=== PATIENT | male | born 1990 | race Caucasian/White ===

== ENCOUNTER 2017-09-10 08:20 | Observation (INO) | payer OTHER, MEDICAID ==
[2017-09-10] MEDS: NS 1,000 ML IV (08:45)
[2017-09-10 08:54] LABS: HEMATOCRIT 49.8 % (42.0-52.0); HEMOGLOBIN 16.8 g/dl (14.0-18.0); MEAN CORPUSCULAR HEMOGLOBIN 30.2 pg (27.0-33.0); MEAN CORPUSCULAR HGB CONC 33.7 g/dl (32.0-36.5); MEAN CORPUSCULAR VOLUME 89.6 fl (80.0-96.0); PLATELET COUNT, AUTOMATED 284 10^3/uL (150-450); RED BLOOD COUNT 5.56 10^6/uL (4.30-6.10); RED CELL DISTRIBUTION WIDTH 13.4 % (11.5-14.5); WHITE BLOOD COUNT 8.5 10^3/uL (4.0-10.0)
[2017-09-10] MEDS: CHARCOAL ACTIVATED LIQUID 25 GM/120 ML BTL PO (09:30)
[2017-09-10 10:08] LABS: ACETAMINOPHEN LEVEL < 2.0 UG/ML (10.0-30.0); ALBUMIN 4.1 GM/DL (3.2-5.2); ALBUMIN/GLOBULIN RATIO 1.14 (1.00-1.93); ALKALINE PHOSPHATASE 66 U/L (45-117); ALT/SGPT 54 U/L (12-78); ANION GAP 9 MEQ/L (8-16); AST/SGOT 19 U/L (7-37); BILIRUBIN,DIRECT 0.1 MG/DL (0.0-0.2); BILIRUBIN,TOTAL 0.5 MG/DL (0.2-1.0); BLOOD UREA NITROGEN 10 MG/DL (7-18); CARBON DIOXIDE LEVEL 28 MEQ/L (21-32); CHLORIDE LEVEL 106 MEQ/L (98-107); CREATININE FOR GFR 0.84 MG/DL (0.70-1.30); ETHYL ALCOHOL (ETHANOL) 0.003 % (0.000-0.010); GLOMERULAR FILTRATION RATE > 60.0 (>60); GLUCOSE, FASTING 81 MG/DL (70-100); POTASSIUM SERUM 3.8 MEQ/L (3.5-5.1); SALICYLATE LEVEL < 1.7 MG/DL (5.0-30.0); SODIUM LEVEL 143 MEQ/L (136-145); TOTAL PROTEIN 7.7 GM/DL (6.4-8.2)
[2017-09-10 13:29] LABS: AMPHETAMINES LEVEL URINE NEGATIVE (NEGATIVE); BARBITURATES URINE NEGATIVE (NEGATIVE); BENZODIAZEPINES URINE POSITIVE (NEGATIVE); CANNABINOIDS URINE NEGATIVE (NEGATIVE); COCAINE METABOLITE URINE NEGATIVE (NEGATIVE); METHADONE URINE NEGATIVE (NEGATIVE); OPIATES URINE NEGATIVE (NEGATIVE); PHENCYCLIDINE URINE NEGATIVE (NEGATIVE)
[2017-09-10] MEDS: LR 1,000 ML IV (16:30)
[2017-09-10] MEDS: PANTOPRAZOLE 40MG INJ (PROTONIX) (C9113) IV (21:09)
[2017-09-11] MEDS: ACETAMINOPHEN TAB 650MG DOSE (2X325MG) PO (04:46)
[2017-09-11] MEDS: LR 1,000 ML IV ×2 (09:23→20:33)
[2017-09-11] MEDS: PANTOPRAZOLE 40MG INJ (PROTONIX) (C9113) IV (20:33)
== END 2017-09-12 18:50 ==
LOC: M ED 08:20 → M ED INP 15:50 → M PCU 21:01
DX: T42.4X2A Poisoning by benzodiazepines, intentional self-harm, initial encounter (principal); T43.222A Poisoning by selective serotonin reuptake inhibitors, intentional self-harm, initial encounter; R94.31 Abnormal electrocardiogram [ECG] [EKG]; Y92.89 Other specified places as the place of occurrence of the external cause; K21.9 Gastro-esophageal reflux disease without esophagitis; F33.2 Major depressive disorder, recurrent severe without psychotic features; T43.215A Adverse effect of selective serotonin and norepinephrine reuptake inhibitors, initial encounter; E66.9 Obesity, unspecified; F41.9 Anxiety disorder, unspecified; K76.0 Fatty (change of) liver, not elsewhere classified; Z81.8 Family history of other mental and behavioral disorders; Z79.899 Other long term (current) drug therapy; Z88.2 Allergy status to sulfonamides
CPT/HCPCS: C9113

== ENCOUNTER 2017-09-12 18:55 | Inpatient (IN) | payer OTHER ==
[~2017-09-12 18:55] MED LIST: ACETAMINOPHEN TAB 650MG DOSE (2X325MG) PO; MAALOX 30 ML SUSP *UDC PO; MOM 30ML SUSPENSION UDC PO
[2017-09-12] MEDS: traZODone 50 MG TAB PO (22:14)
[2017-09-13] MEDS: SERTRALINE HCL 25 MG TABLET PO (08:36)
[2017-09-13] MEDS: busPIRone 5 MG TAB PO ×2 (10:06→20:53)
[2017-09-13] MEDS: hydrOXYzine 25 MG TAB PO (20:53)
[2017-09-13] MEDS: traZODone 50 MG TAB PO (23:43)
[2017-09-14] MEDS: SERTRALINE HCL 25 MG TABLET PO (08:13)
[2017-09-14] MEDS: busPIRone 5 MG TAB PO ×2 (08:13→21:03)
[2017-09-14] MEDS: hydrOXYzine 25 MG TAB PO (15:08)
[2017-09-14] MEDS: traZODone 50 MG TAB PO (21:54)
[2017-09-15] MEDS: SERTRALINE HCL 25 MG TABLET PO (08:14)
[2017-09-15] MEDS: busPIRone 5 MG TAB PO (08:14)
== END 2017-09-15 11:30 | disposition home or self-care (01) | DRG 756 ==
LOC: M PSY 18:55
DX: F41.9 Anxiety disorder, unspecified (principal); F33.2 Major depressive disorder, recurrent severe without psychotic features; R45.851 Suicidal ideations; Z91.5 Personal history of self-harm; Z79.899 Other long term (current) drug therapy; Z88.2 Allergy status to sulfonamides; K21.9 Gastro-esophageal reflux disease without esophagitis; E66.9 Obesity, unspecified

== ENCOUNTER 2018-05-07 17:31 | Inpatient (IN) | payer OTHER ==
[2018-05-07 14:41] LABS: VENOUS BASE EXCESS 0.8 (-2.0-2.0); VENOUS HCO3 27.4 MEQ/L (23.0-27.0); VENOUS O2 SATURATION 75.2 % (60.0-80.0); VENOUS PARTIAL PRESSURE CO2 50.8 mmHg (38.0-50.0); VENOUS PARTIAL PRESSURE O2 40.5 mmHg (30.0-50.0); VENOUS STANDARD HCO3 24.5 MEQ/L
[2018-05-07 14:52] LABS: BASO # 0.1 10^3/uL (0.0-0.2); BASO % 0.7 % (0.0-1.0); EOS # 0.1 10^3/uL (0.0-0.50); EOS % 1.2 % (0.0-3.0); HEMATOCRIT 47.6 % (42.0-52.0); HEMOGLOBIN 16.3 g/dl (13.5-17.5); LYMPH # 2.1 10^3/uL (1.5-6.5); LYMPH % 27.7 % (24.0-44.0); MEAN CORPUSCULAR HGB CONC 34.2 g/dl (32.0-36.5); MEAN CORPUSCULAR VOLUME 90.7 fl (80.0-96.0); MONO # 0.7 10^3/uL (0.0-0.8); MONO % 9.1 % (0.0-5.0); NEUTROPHILS # 4.5 10^3/uL (1.8-7.7); NEUTROPHILS % 61.3 % (36.0-66.0); PLATELET COUNT, AUTOMATED 323 10^3/uL (150-450); RED BLOOD COUNT 5.25 10^6/uL (4.30-6.10); RED CELL DISTRIBUTION WIDTH 13.3 % (11.5-14.5); WHITE BLOOD COUNT 7.4 10^3/uL (4.0-10.0)
[2018-05-07] MEDS: NS 1,000 ML IV (15:02)
[2018-05-07 15:15] LABS: ALBUMIN 4.3 GM/DL (3.2-5.2); ALBUMIN/GLOBULIN RATIO 1.19 (1.00-1.93); ALKALINE PHOSPHATASE 74 U/L (45-117); ALT/SGPT 77 U/L (12-78); ANION GAP 8 MEQ/L (8-16); AST/SGOT 31 U/L (7-37); BILIRUBIN,DIRECT 0.2 MG/DL (0.0-0.2); BILIRUBIN,TOTAL 0.6 MG/DL (0.2-1.0); BLOOD UREA NITROGEN 11 MG/DL (7-18); CALCIUM LEVEL 9.5 MG/DL (8.5-10.1); CARBON DIOXIDE LEVEL 29 MEQ/L (21-32); CHLORIDE LEVEL 105 MEQ/L (98-107); CPK CREATINE PHOSPHOKINASE 69 U/L (39-308); CREATININE FOR GFR 1.03 MG/DL (0.70-1.30); ETHYL ALCOHOL (ETHANOL) < 0.003 % (0.000-0.010); GLOMERULAR FILTRATION RATE > 60.0 (>60); GLUCOSE, FASTING 94 MG/DL (70-100); POTASSIUM SERUM 4.3 MEQ/L (3.5-5.1); SALICYLATE LEVEL < 1.7 MG/DL (5.0-30.0); SODIUM LEVEL 142 MEQ/L (136-145); TOTAL PROTEIN 7.9 GM/DL (6.4-8.2)
[2018-05-07 15:16] LABS: ACETAMINOPHEN LEVEL < 2.0 UG/ML (10.0-30.0)
[2018-05-07 15:19] LABS: BEDSIDE GLUCOSE 92 MG/DL (70-105)
[2018-05-07 20:07] LABS: AMPHETAMINES LEVEL URINE NEGATIVE (NEGATIVE); BARBITURATES URINE NEGATIVE (NEGATIVE); BENZODIAZEPINES URINE NEGATIVE (NEGATIVE); CANNABINOIDS URINE NEGATIVE (NEGATIVE); COCAINE METABOLITE URINE NEGATIVE (NEGATIVE); METHADONE URINE NEGATIVE (NEGATIVE); OPIATES URINE NEGATIVE (NEGATIVE); PHENCYCLIDINE URINE NEGATIVE (NEGATIVE)
[2018-05-07] MEDS ORDERED: ACETAMINOPHEN TAB 650MG DOSE (2X325MG) PO (21:30)
[2018-05-07] MEDS ORDERED: MOM 30ML SUSPENSION UDC PO (21:30)
[2018-05-07] MEDS: traZODone 50 MG TAB PO (23:27)
[2018-05-08] MEDS: busPIRone 10 MG TAB PO ×2 (15:51→21:00)
[2018-05-08] MEDS: MAALOX 30 ML SUSP *UDC PO (21:09)
[2018-05-08] MEDS: traZODone 100 MG TAB PO (23:01)
[2018-05-09] MEDS: busPIRone 10 MG TAB PO ×3 (08:43→20:55)
[2018-05-09] MEDS: MAALOX 30 ML SUSP *UDC PO ×2 (10:16→22:28)
[2018-05-09] MEDS: PROPRANOLOL 10 MG TAB PO (20:55)
[2018-05-09] MEDS: traZODone 100 MG TAB PO (22:29)
[2018-05-10] MEDS: busPIRone 10 MG TAB PO ×3 (08:49→20:43)
[2018-05-10] MEDS: MAALOX 30 ML SUSP *UDC PO (11:54)
[2018-05-10] MEDS: FETZIMA 40 MG PO (16:39)
[2018-05-10] MEDS: FETZIMA 20 MG PO (16:39)
[2018-05-10] MEDS: traZODone 100 MG TAB PO (22:27)
[2018-05-11] MEDS: FETZIMA 40 MG PO (08:33)
[2018-05-11] MEDS: busPIRone 10 MG TAB PO (08:33)
[2018-05-11] MEDS: FETZIMA 20 MG PO (08:33)
== END 2018-05-11 13:30 | disposition home or self-care (01) | DRG 755 ==
LOC: M ED 17:31 → M ED INP 21:27 → M PSY 22:18
DX: F40.01 Agoraphobia with panic disorder (principal); F33.2 Major depressive disorder, recurrent severe without psychotic features; Z68.43 Body mass index [BMI] 50.0-59.9, adult; F41.1 Generalized anxiety disorder; Z79.899 Other long term (current) drug therapy; Z88.2 Allergy status to sulfonamides; E66.9 Obesity, unspecified; G47.00 Insomnia, unspecified

== ENCOUNTER → 2018-09-03 | Outpatient (CLI) | payer OTHER ==
[~2018-09-03] MED LIST changes: -ACETAMINOPHEN TAB 650MG DOSE (2X325MG) PO; +BUSP10TA PO; +BUSP1TAB; +BUSP1TAB PO; +BUSP5TA PO; +CLON0.5T8; +CLON0.5T8 PO; +CLON1TAB8 PO; +FETZ1CAP2; +FETZ1CAP2 PO; +FETZ1CAP3; +FETZ1CAP3 PO; -MAALOX 30 ML SUSP *UDC PO; -MOM 30ML SUSPENSION UDC PO; +PROP10TA56 PO; +SERT-155 PO; +TRAZ-160 PO; +TRAZ10TA PO; +VENL150C43 PO; +VIST25CA PO; +ZOLO25TA PO
[2018-09-03 10:37] LABS: HEMATOCRIT 44.8 % (42.0-52.0); HEMOGLOBIN 15.2 g/dl (13.5-17.5); MEAN CORPUSCULAR HEMOGLOBIN 29.7 pg (27.0-33.0); MEAN CORPUSCULAR HGB CONC 33.9 g/dl (32.0-36.5); MEAN CORPUSCULAR VOLUME 87.7 fl (80.0-96.0); PLATELET COUNT, AUTOMATED 286 10^3/uL (150-450); RED BLOOD COUNT 5.11 10^6/uL (4.30-6.10); WHITE BLOOD COUNT 6.6 10^3/uL (4.0-10.0)
--- NOTE | 2018-09-03 11:00 | REP ---
CHEST, TWO VIEWS: There is no evidence of acute infiltrate. No pleural effusion is seen. The heart is normal in size. The mediastinal silhouette is unremarkable. The visualized osseous structures are intact. IMPRESSION: No acute pulmonary disease. Electronically Signed by Henry Worley MD 09/03/2018 11:02 A
[2018-09-03 11:07] LABS: ALBUMIN 3.7 GM/DL (3.2-5.2); ALT/SGPT 51 U/L (12-78); BILIRUBIN,TOTAL 0.7 MG/DL (0.2-1.0); BLOOD UREA NITROGEN 9 MG/DL (7-18); CALCIUM LEVEL 8.8 MG/DL (8.5-10.1); CARBON DIOXIDE LEVEL 28 MEQ/L (21-32); CHLORIDE LEVEL 106 MEQ/L (98-107); CHOLESTEROL LEVEL 145 MG/DL (<200); CHOLESTEROL RISK RATIO 4.833 (<5); CREATININE FOR GFR 0.85 MG/DL (0.70-1.30); GLOMERULAR FILTRATION RATE > 60.0 (>60); GLUCOSE, FASTING 95 MG/DL (70-100); HDL CHOLESTEROL 30 MG/DL (>40); LDL CHOLESTEROL 85 MG/DL (<100); NON-HDL-C 115 MG/DL; POTASSIUM SERUM 4.3 MEQ/L (3.5-5.1); SODIUM LEVEL 139 MEQ/L (136-145); TRIGLYCERIDES LEVEL 148 MG/DL (<150)
[2018-09-03 11:22] LABS: TOTAL 25(OH) VITAMIN D 10.3 NG/ML (30.0-100.0)
[2018-09-03 11:32] LABS: HEMOGLOBIN A1c 5.6 %
--- NOTE | 2018-09-04 00:41 | ECGEPIP ---
Stationary ECG Study [facility] Test Date: 2018-09-03 Pat Name: PACHECO MARTE Department: Room: - Gender: M Senior Sales Operations Manager: MELO : 1990 Requested By: Geovanny Soria Order Number: [id number] Reading MD: Delon Bermudez Measurements Intervals [place] Rate: 73 P: 36 [place]: 144 QRS: 73 QRSD: 103 T: 32 QT: 364 QTc: 404 Interpretive Statements SINUS RHYTHM NONSPECIFIC ST ELEVATION, PROBABLY RELATED TO EARLY REPOLARIZATION COMPARED TO THE MOST RECENT 2 TRACINGS IN THE SYSTEM, NO SIGNIFICANT CHANGES Electronically Signed On 09-04-2018 0:41:20 EST by Delon Bermudez
== END ==
LOC: M LAB 09:55
PROVIDERS: ATTEND Family Medicine
DX: I10 Essential (primary) hypertension (principal)

== ENCOUNTER 2018-11-23 12:52 | Emergency (ER) | payer OTHER ==
[~2018-11-23] VITALS: Ht 170.2 cm; Wt 98.2 kg
[2018-11-23] MEDS ORDERED: TRIA37.53 (13:07)
[2018-11-23] MEDS ORDERED: FLUO40CA (13:07)
[2018-11-23] MEDS ORDERED: ALPR1TAB3 (13:07)
[2018-11-23] MEDS ORDERED: VITA500045 (13:07)
[2018-11-23] MEDS ORDERED: OMEP-218 (13:07)
[2018-11-23] MEDS ORDERED: LEVO200T4 (13:07)
--- NOTE | 2018-11-23 14:21 | REP ---
Chest two views HISTORY: Chest pain Comparison: 09/03/2018 The lungs are clear. The heart is normal in size. The pulmonary vasculature is normal in appearance. The bony structure is intact. IMPRESSION: No acute disease. Electronically Signed by Adonis Velasquez MD 11/23/2018 02:12 P
[2018-11-23 14:43] LABS: BASO % 0.3 % (0.0-1.0); EOS # 0.1 10^3/uL (0.0-0.50); EOS % 1.1 % (0.0-3.0); HEMATOCRIT 46.5 % (42.0-52.0); HEMOGLOBIN 15.6 g/dl (13.5-17.5); LYMPH # 1.8 10^3/uL (1.5-6.5); LYMPH % 20.7 % (24.0-44.0); MEAN CORPUSCULAR HEMOGLOBIN 29.8 pg (27.0-33.0); MEAN CORPUSCULAR HGB CONC 33.5 g/dl (32.0-36.5); MEAN CORPUSCULAR VOLUME 88.7 fl (80.0-96.0); MONO # 0.7 10^3/uL (0.0-0.8); MONO % 7.9 % (0.0-5.0); NEUTROPHILS # 6.1 10^3/uL (1.8-7.7); NEUTROPHILS % 69.8 % (36.0-66.0); PLATELET COUNT, AUTOMATED 294 10^3/uL (150-450); RED BLOOD COUNT 5.24 10^6/uL (4.30-6.10); WHITE BLOOD COUNT 8.8 10^3/uL (4.0-10.0)
[2018-11-23 15:19] LABS: ALBUMIN 3.9 GM/DL (3.2-5.2); ALT/SGPT 152 U/L (12-78); BILIRUBIN,DIRECT 0.2 MG/DL (0.0-0.2); BILIRUBIN,TOTAL 0.7 MG/DL (0.2-1.0); BLOOD UREA NITROGEN 17 MG/DL (7-18); CARBON DIOXIDE LEVEL 28 MEQ/L (21-32); CHLORIDE LEVEL 106 MEQ/L (98-107); CPK CREATINE PHOSPHOKINASE 93 U/L (39-308); CREATININE FOR GFR 0.76 MG/DL (0.70-1.30); GLOMERULAR FILTRATION RATE > 60.0 (>60); GLUCOSE, FASTING 83 MG/DL (70-100); MB/CK RELATIVE INDEX 1.08 (< OR =4); SODIUM LEVEL 140 MEQ/L (136-145); TOTAL PROTEIN 7.2 GM/DL (6.4-8.2); TROPONIN I < 0.02 NG/ML (< 0.10)
[2018-11-23] MEDS ORDERED: ISOVUE-370 76% 100ML VIAL (Q9967) As Ordered ONE (16:37)
[2018-11-23 17:08] VITALS: BP 126/61
--- NOTE | 2018-11-23 19:13 | REP ---
CT ANGIOGRAM CHEST: TECHNIQUE: Axial contrast enhanced images from the thoracic inlet to the upper abdomen using 100 mL Isovue 370 intravenous contrast material with multiplanar reformations. There is no CT evidence of pulmonary embolism. There is no thoracic aortic aneurysm or dissection. Heart is normal in size. There is no mediastinal, hilar, or chest wall lymphadenopathy. There is no pleural or pericardial effusion. There is a small hiatal hernia. No infiltrate is seen in either lung and there is no pneumothorax. IMPRESSION: No CT evidence of pulmonary embolism. Small hiatal hernia. Electronically Signed by Henry Worley MD 11/25/2018 09:53 A
--- NOTE | 2018-11-24 01:37 | ECGEPIP ---
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 Order Number: [id number] Reading MD: Yony Oliveira Measurements Intervals [place] Rate: 75 P: 25 [place]: 138 QRS: 73 QRSD: 84 T: 17 QT: 377 QTc: 423 Interpretive Statements SINUS RHYTHM BENIGN EARLY REPOLARIZATION SIMILAR TO 09/03/18 Electronically Signed On 11-24-2018 1:36:54 EDT by Yony Oliveira
== END 2018-11-23 17:55 | disposition home or self-care (01) ==
LOC: M ED 12:52
DX: R07.89 Other chest pain (principal); K44.9 Diaphragmatic hernia without obstruction or gangrene; R10.9 Unspecified abdominal pain; Z88.2 Allergy status to sulfonamides; I10 Essential (primary) hypertension; K21.9 Gastro-esophageal reflux disease without esophagitis; Z87.440 Personal history of urinary (tract) infections; K76.0 Fatty (change of) liver, not elsewhere classified; F32.9 Major depressive disorder, single episode, unspecified; F41.9 Anxiety disorder, unspecified; Z91.5 Personal history of self-harm; F40.00 Agoraphobia, unspecified; Z79.899 Other long term (current) drug therapy
CPT/HCPCS: 71046; 71275; 80048; 80076; 82550; 82553; 85025; 85379; 93005; 99284; Q9967

== ENCOUNTER 2019-03-18 14:02 | Emergency (ER) | payer OTHER ==
[~2019-03-18] VITALS: Ht 170.2 cm; Wt 131.8 kg
[~2019-03-18 14:02] MED LIST changes: +ALPR1TAB3 PO; +CLON0.5T2; +CLON0.5T2 PO; -CLON0.5T8; -CLON0.5T8 PO; +FLUO40CA PO; +LEVO200T4 PO; +OMEP-218; -SERT-155 PO; +SERT50TA29 PO; -TRAZ-160 PO; +TRAZ-252 PO; -TRAZ10TA PO; +TRAZ1TAB12 PO; +TRIA37.53 PO; +VITA500045
[2019-03-18 16:59] LABS: BASO # 0.1 10^3/uL (0.0-0.2); BASO % 0.4 % (0.0-1.0); EOS % 0.1 % (0.0-3.0); HEMATOCRIT 49.7 % (42.0-52.0); HEMOGLOBIN 16.2 g/dl (13.5-17.5); LYMPH # 1.4 10^3/uL (1.5-6.5); LYMPH % 10.2 % (24.0-44.0); MEAN CORPUSCULAR HEMOGLOBIN 29.7 pg (27.0-33.0); MEAN CORPUSCULAR HGB CONC 32.6 g/dl (32.0-36.5); MONO # 0.8 10^3/uL (0.0-0.8); MONO % 5.9 % (0.0-5.0); NEUTROPHILS # 11.3 10^3/uL (1.8-7.7); PLATELET COUNT, AUTOMATED 303 10^3/uL (150-450); RED BLOOD COUNT 5.46 10^6/uL (4.30-6.10); WHITE BLOOD COUNT 13.6 10^3/uL (4.0-10.0)
[2019-03-18] MEDS ORDERED: SIMETHICONE 80 MG CHEW TAB PO ONE (17:30)
[2019-03-18] MEDS ORDERED: PANTOPRAZOLE 40MG INJ (PROTONIX) (C9113) IV ONE (17:30)
[2019-03-18 17:36] LABS: ALBUMIN 3.8 GM/DL (3.2-5.2); ALT/SGPT 105 U/L (12-78); AMYLASE 486 U/L (25-115); BILIRUBIN,DIRECT 0.2 MG/DL (0.0-0.2); BILIRUBIN,TOTAL 0.7 MG/DL (0.2-1.0); BLOOD UREA NITROGEN 9 MG/DL (7-18); CALCIUM LEVEL 9.6 MG/DL (8.5-10.1); CARBON DIOXIDE LEVEL 31 MEQ/L (21-32); CHLORIDE LEVEL 103 MEQ/L (98-107); CK-MB VALUE MASS 1.1 NG/ML (<3.6); CPK CREATINE PHOSPHOKINASE 95 U/L (39-308); GLOMERULAR FILTRATION RATE > 60.0 (>60); GLUCOSE, FASTING 130 MG/DL (70-100); LIPASE 10483 U/L (73-393); MB/CK RELATIVE INDEX 1.16 (< OR =4); POTASSIUM SERUM 4.1 MEQ/L (3.5-5.1); SODIUM LEVEL 140 MEQ/L (136-145); TOTAL PROTEIN 7.7 GM/DL (6.4-8.2); TROPONIN I < 0.02 NG/ML (< 0.10)
--- NOTE | 2019-03-18 17:40 | REP ---
HISTORY: Dyspnea. COMPARISON: 11/23/2018 FINDINGS: The superior mediastinal structures are midline. The cardiac silhouette is unremarkable in size, shape and position. The diaphragmatic surfaces of the lungs are regular and the costophrenic angles are clear. The pulmonary perdomo are clear. The imaged osseous structures are intact. IMPRESSION: There is no acute cardiopulmonary disease. Electronically Signed by Juan Cisneros DO 03/18/2019 06:04 P
[2019-03-18] MEDS ORDERED: NS 1,000 ML IV ONE (18:00)
[2019-03-18] MEDS ORDERED: ISOVUE-370 76% 100ML VIAL (Q9967) As Ordered ONE (18:07)
[2019-03-18 18:10] LABS: CHOLESTEROL LEVEL 151 MG/DL (<200); CHOLESTEROL RISK RATIO 5.807 (<5); HDL CHOLESTEROL 26 MG/DL (>40); LDL CHOLESTEROL 91 MG/DL (<100); NON-HDL-C 125 MG/DL; TRIGLYCERIDES LEVEL 170 MG/DL (<150)
--- NOTE | 2019-03-18 18:44 | REPVR ---
EXAM: CT Abdomen and Pelvis With Contrast EXAM DATE/TIME: 03/18/2019 5:47 PM CLINICAL HISTORY: 29 years old, male; Abdominal pain; Epigastric; Additional info: Abdominal pain, distension. PT began to vomit during exam TECHNIQUE: Imaging protocol: Axial computed tomography images of the abdomen and pelvis with intravenous contrast. Coronal and sagittal reformatted images were created and reviewed. Radiation optimization: All CT scans at this facility use at least one of these dose optimization techniques: automated exposure control; mA and/or kV adjustment per patient size (includes targeted exams where dose is matched to clinical indication); or iterative reconstruction. Contrast material: ISOVUE 370;Contrast volume: 940 ml;Contrast route: IV; COMPARISON: CT ABD PELVIS W/O CONTRAST 07/18/2015 10:26 AM FINDINGS: Mediastinum: Small sliding hiatal hernia. Liver: Normal. No mass. Gallbladder and bile ducts: Normal. No calcified stones. No ductal dilation. Pancreas: Minimal inflammatory changes and fluid are noted within the peripancreatic fat at the level of the body and tail of the pancreas. Spleen: Normal. No splenomegaly. Adrenals: Normal. No mass. Kidneys and ureters: Normal. No hydronephrosis. Stomach and bowel: Normal. No obstruction. No mucosal thickening. Appendix: No evidence of appendicitis. Intraperitoneal space: Normal. No free air. No significant fluid collection. Vasculature: Normal. No abdominal aortic aneurysm. Lymph nodes: Normal. No enlarged lymph nodes. Bladder: Unremarkable as visualized. Reproductive: Unremarkable as visualized. Bones/joints: No acute fracture. No dislocation. Soft tissues: Unremarkable. Other findings: Motion artifact degrades image quality particularly the images the pelvis. (The patient vomited during the examination) IMPRESSION: 1. Pancreatitis. No pseudocyst. Normal opacification of the portal vein and splenic vein. No abscess seen. 2. Small sliding hiatal hernia Electronically signed by: Patrica Olivares On 03/18/2019 18:43:57 PM
[2019-03-18 19:30] VITALS: BP 117/55
[2019-03-18] MEDS ORDERED: MORPHINE 2 MG/ML 1ML VIAL (J2270) IV ONE (20:30)
[2019-03-18] MEDS ORDERED: ONDANSETRON 4MG/2ML VIAL (J2405) IV ONE (20:45)
--- NOTE | 2019-03-19 06:10 | ECGEPIP ---
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 Order Number: [id number] Reading MD: Yony Oliveira Measurements Intervals [place] Rate: 69 P: 27 [place]: 148 QRS: 79 QRSD: 100 T: 35 QT: 392 QTc: 420 Interpretive Statements SINUS RHYTHM BENIGN EARLY REPOLARIZATION SIMILAR TO 11/23/18 Electronically Signed on 03-19-2019 6:10:25 EDT by Yony Oliveira
[2019-04-23] MEDS ORDERED: METF-839 PO (12:08)
[2019-04-23] MEDS ORDERED: ONDA-83 PO (12:08)
[2019-04-25] MEDS ORDERED: PERCOCET PO (10:13)
[2019-04-25] MEDS ORDERED: AUGM500T34 PO (10:13)
== END 2019-03-18 21:20 | disposition home or self-care (01) ==
LOC: M ED 14:02
DX: K85.90 Acute pancreatitis without necrosis or infection, unspecified (principal); E78.5 Hyperlipidemia, unspecified; K21.9 Gastro-esophageal reflux disease without esophagitis; I20.9 Angina pectoris, unspecified; K44.9 Diaphragmatic hernia without obstruction or gangrene; Z79.899 Other long term (current) drug therapy; Z88.2 Allergy status to sulfonamides
CPT/HCPCS: 71046; 74177; 80048; 80061; 80076; 82150; 82550; 82553; 83690; 85025; 93005; 99284; C9113; J2270; J2405; Q9967

== ENCOUNTER 2019-04-20 20:26 | Emergency (ER) | payer OTHER ==
[~2019-04-20] VITALS: Ht 172.7 cm; Wt 127.3 kg
[~2019-04-20 20:26] MED LIST changes: -CLON0.5T2; -CLON0.5T2 PO; +CLON0.5T8; +CLON0.5T8 PO; +SERT-155 PO; -SERT50TA29 PO; +TRAZ10TA PO; -TRAZ1TAB12 PO
[2019-04-20] MEDS ORDERED: PANT40TA3 PO (20:35)
[2019-04-20 21:06] LABS: BASO # 0.1 10^3/uL (0.0-0.2); BASO % 0.6 % (0.0-1.0); EOS % 0.2 % (0.0-3.0); HEMATOCRIT 50.9 % (42.0-52.0); HEMOGLOBIN 16.4 g/dl (13.5-17.5); LYMPH # 1.5 10^3/uL (1.5-5.0); LYMPH % 13.7 % (24.0-44.0); MEAN CORPUSCULAR HEMOGLOBIN 28.5 pg (27.0-33.0); MEAN CORPUSCULAR HGB CONC 32.2 g/dl (32.0-36.5); MEAN CORPUSCULAR VOLUME 88.5 fl (80.0-96.0); MONO # 0.6 10^3/uL (0.0-0.8); MONO % 5.6 % (0.0-5.0); NEUTROPHILS # 8.5 10^3/uL (1.5-8.5); NEUTROPHILS % 79.6 % (36.0-66.0); PLATELET COUNT, AUTOMATED 331 10^3/uL (150-450); RED BLOOD COUNT 5.75 10^6/uL (4.30-6.10); WHITE BLOOD COUNT 10.7 10^3/uL (4.0-10.0)
[2019-04-20 21:37] LABS: ALBUMIN 4.3 GM/DL (3.2-5.2); ALT/SGPT 60 U/L (12-78); BILIRUBIN,TOTAL 0.4 MG/DL (0.2-1.0); BLOOD UREA NITROGEN 10 MG/DL (7-18); CALCIUM LEVEL 10.4 MG/DL (8.5-10.1); CARBON DIOXIDE LEVEL 31 MEQ/L (21-32); CHLORIDE LEVEL 100 MEQ/L (98-107); CREATININE FOR GFR 0.95 MG/DL (0.70-1.30); GLOMERULAR FILTRATION RATE > 60.0 (>60); GLUCOSE, FASTING 125 MG/DL (70-100); POTASSIUM SERUM 3.9 MEQ/L (3.5-5.1); SODIUM LEVEL 138 MEQ/L (136-145); TOTAL PROTEIN 8.5 GM/DL (6.4-8.2)
[2019-04-20] MEDS ORDERED: NS 1,000 ML IV SCH (21:39)
[2019-04-20] MEDS ORDERED: ONDANSETRON 4MG/2ML VIAL (J2405) IV ONE (21:45)
[2019-04-20] MEDS ORDERED: PANTOPRAZOLE 40MG INJ (PROTONIX) (C9113) IV ONE (21:45)
[2019-04-20] MEDS ORDERED: GI COCKTAIL 50ML BTL(HYOSCYAMINE/MAALOX/LIDOCAINE VISCOUS)(1:3:1) PO ONE (21:45)
[2019-04-20 22:04] LABS: CK-MB VALUE MASS 1.3 NG/ML (<3.6); CPK CREATINE PHOSPHOKINASE 103 U/L (39-308); LIPASE 136 U/L (73-393); MB/CK RELATIVE INDEX 1.26 (< OR =4); TROPONIN I < 0.02 NG/ML (< 0.10)
--- NOTE | 2019-04-20 22:56 | REPVR ---
EXAM: US Abdomen Limited, Right Upper Quadrant EXAM DATE/TIME: 04/20/2019 10:23 PM CLINICAL HISTORY: 29 years old, male; Abdominal pain; Epigastric; Additional info: Ruq, epigastric pain TECHNIQUE: Imaging protocol: Real-time ultrasound of the abdomen with image documentation. Examination was focused on the right upper quadrant. COMPARISON: CT ABD/PEL W/IV CONTRAST ONLY 03/18/2019 5:52 PM FINDINGS: Liver: The liver demonstrates no gross focal defects. Gallbladder: The gallbladder demonstrates multiple mobile shadowing stones. There is slight gallbladder wall thickening measuring 4 mm. Common bile duct: The CBD measures 6 mm. Pancreas: The pancreas is not seen due to gas shadowing. Right kidney: The right kidney is normal measuring 10.7 cm. No hydronephrosis. IMPRESSION: 1. Cholelithiasis with multiple shadowing stones. There is slight gallbladder wall thickening measuring 4 mm. 2. Otherwise negative right upper quadrant sonogram. Electronically signed by: Obed Grimm On 04/20/2019 22:56:33 PM
[2019-04-20] MEDS ORDERED: MORPHINE 4 MG/ML 1ML VIAL/SYRINGE (J2270) IV ONE (23:15)
[2019-04-20] MEDS ORDERED: ZOFR4TAB16 PO (23:49)
[2019-04-21] VITALS: BP 114/70
--- NOTE | 2019-04-21 05:40 | ECGEPIP ---
[facility] - ED Test Date: 2019-04-20 Pat Name: PACHECO MARTE Department: Room: - Gender: Male Editor News: CT : 1990 Requested By: DENAE Whitfield Order Number: [id number] Reading MD: Yony Oliveira Measurements Intervals [place] Rate: 62 P: 3 [place]: 144 QRS: 60 QRSD: 106 T: 1 QT: 402 QTc: 409 Interpretive Statements SINUS RHYTHM NSTTW ABNORMALITIES SIMILAR TO 03/18/19 Electronically Signed on 04-21-2019 5:39:53 EDT by Yony Oliveira
[2019-04-23] MEDS ORDERED: METF-839 PO (12:08)
[2019-04-23] MEDS ORDERED: ONDA4TAB5 PO (12:08)
[2019-04-25] MEDS ORDERED: PERCOCET PO (10:13)
[2019-04-25] MEDS ORDERED: AUGM500T34 PO (10:13)
== END 2019-04-21 00:06 | disposition home or self-care (01) ==
LOC: M ED 20:26
DX: K80.20 Calculus of gallbladder without cholecystitis without obstruction (principal); F33.9 Major depressive disorder, recurrent, unspecified; F41.9 Anxiety disorder, unspecified; K21.9 Gastro-esophageal reflux disease without esophagitis; K44.9 Diaphragmatic hernia without obstruction or gangrene; Z79.899 Other long term (current) drug therapy; Z88.1 Allergy status to other antibiotic agents; Z88.2 Allergy status to sulfonamides
CPT/HCPCS: 76705; 80053; 82550; 82553; 83690; 85025; 93005; 93041; 94760; 96361; 96374; 96375; 99284; C9113; J2270; J2405

== ENCOUNTER 2019-06-01 11:43 | Day surgery (SDC) | payer MEDICAID, OTHER, SELFPAY ==
[~2019-06-01] VITALS: Ht 170.2 cm; Wt 129.7 kg
[~2019-06-01 11:43] MED LIST changes: +AUGM500T34 PO; +LR 1,000 ML IV ONE; +METF-839 PO; +ONDA4TAB5 PO; +PANT40TA3 PO; +PERCOCET PO; -SERT-155 PO; +SERT50TA29 PO; +ZOFR4TAB16 PO; +ceFAZolin SOD 1 GM in D5W MINI-BAG PLUS 50 ML IV ONE
[2019-06-01] MEDS ORDERED: D5W/0.45% SODIUM CHLORIDE 1,000 ML IV SCH (13:15)
[2019-06-01] MEDS ORDERED: SUGAMMADEX SODIUM 500 MG/5 ML VIAL (BRIDION) As Ordered ONE (14:52)
[2019-06-01] MEDS ORDERED: KETOROLAC 60 MG/2 ML VIAL (J1885) As Ordered ONE (14:52)
[2019-06-01] MEDS ORDERED: ONDANSETRON 4MG/2ML VIAL (J2405) As Ordered ONE (14:55)
[2019-06-01] MEDS ORDERED: ROCURONIUM BROMIDE 50 MG/5 ML VIAL As Ordered ONE ×2 (14:55→15:56)
[2019-06-01] MEDS ORDERED: LIDOCAINE 2% INJ 100 MG/5 ML SDV (FOR ANES.) As Ordered ONE (14:55)
[2019-06-01] MEDS ORDERED: PROPOFOL 200 MG/20 ML VIAL As Ordered ONE (14:55)
[2019-06-01] MEDS ORDERED: dexameTHASONE 4 MG/ML 1ML VIAL (J1100) As Ordered ONE (14:55)
[2019-06-01] MEDS ORDERED: MIDAZOLAM INJ 2 MG/2 ML VIAL (J2250) As Ordered ONE (14:56)
[2019-06-01] MEDS ORDERED: fentaNYL 100 MCG/2 ML INJECTION (J3010) As Ordered ONE ×2 (14:56→15:57)
[2019-06-01] MEDS ORDERED: BUPIVACAINE/EPIN 0.25% 30 ML VIAL As Ordered ONE (15:08)
[2019-06-01] MEDS ORDERED: ACETAMINOPHEN 1000MG 100ML IV BTL (OFIRMEV) (J0131 PER 10MG) As Ordered ONE (16:38)
[2019-06-01] MEDS ORDERED: MORPHINE 4 MG/ML 1ML VIAL/SYRINGE (J2270) IV PRN (17:15)
[2019-06-01] MEDS ORDERED: LR 1,000 ML IV SCH ×2 (17:15→18:00)
[2019-06-01] MEDS ORDERED: ONDANSETRON 4MG/2ML VIAL (J2405) IV PRN ×2 (17:15→18:00)
[2019-06-01] MEDS ORDERED: NORCO, ANEXSIA 5/325MG TABLET (HYDROcodone/ACETAMINOPHEN) PO PRN (17:15)
[2019-06-01] MEDS ORDERED: fentaNYL 100 MCG/2 ML INJECTION (J3010) IV PRN (18:00)
[2019-06-01] MEDS ORDERED: HYDROMORPHONE HCL 0.5 MG/ 0.5 ML SYRINGE (J1170 PER 1) IV PRN (18:00)
[2019-06-01 20:10] VITALS: BP 112/66
--- NOTE | 2019-06-05 14:29 | RO ---
DATE OF PROCEDURE: 06/01/2019 PREOPERATIVE DIAGNOSIS: Acute cholecystitis. POSTOPERATIVE DIAGNOSIS: Acute cholecystitis. PROCEDURE PERFORMED: Laparoscopic cholecystectomy. SURGEON: Dr. Tiburcio Broderick. ANESTHESIA: General endotracheal anesthesia. ESTIMATED BLOOD LOSS: Minimal. FLUIDS: Crystalloid. DESCRIPTION OF PROCEDURE: The patient was brought to the operating room and was given general anesthesia. After adequate anesthesia and preoperative antibiotics were given, the patient was prepped and draped in the usual sterile fashion. Next, a supraumbilical incision was made with skin knife. Blunt dissection was carried down to fascia. Veress needle placed into the abdominal cavity, insufflated to 15 mm pressure. A dilating 10 mm trocar was placed at this time, and under direct visualization, epigastric and two lateral trocars were placed. Next, the gallbladder was grasped once the patient was placed in a head-up left side down position and adhesions to the gallbladder were taken down with the hook cautery and then the peritoneum was cleared off the lateral aspect of the gallbladder. This patient had a edematous as well as thickened gallbladder wall and eventually the neck of the gallbladder was cleared of surrounding structures. The cystic artery was well visualized medially as well as the cystic duct. After a good window behind the neck of the gallbladder was created and the critical view of safety obtained, the cystic artery was clipped proximally and transected distally with electrocautery. Then a better window was appreciated at this time in the posterior aspect of the gallbladder itself continuing up onto the cystic plate even further and down towards the neck of the gallbladder cystic duct area. The cystic duct was clipped proximally and distally and transected. Then the gallbladder was taken from the gallbladder bed using electrocautery. This was placed in an EndoCatch bag brought out through the umbilicus. The right upper quadrant was copiously irrigated until clear and all trocars removed under direct visualization. 0 Vicryl was used to close the fascia at the umbilicus and all incisions were closed with #4-0 Vicryl. Steri-Strips and a dry sterile dressing was applied. The patient was awakened, extubated, brought to the recovery room awake, alert, hemodynamically stable. Sponge and needle counts correct times two.
== END 2019-06-01 20:12 | disposition home or self-care (01) ==
LOC: M SDC 11:43
PROVIDERS: ATTEND Surgery
DX: K80.10 Calculus of gallbladder with chronic cholecystitis without obstruction (principal); I10 Essential (primary) hypertension; E11.9 Type 2 diabetes mellitus without complications; E03.9 Hypothyroidism, unspecified; Z88.2 Allergy status to sulfonamides; F41.9 Anxiety disorder, unspecified; F32.9 Major depressive disorder, single episode, unspecified; E66.9 Obesity, unspecified; Z79.899 Other long term (current) drug therapy
CPT/HCPCS: 47562; 88304; J0131; J0690; J1100; J1885; J2250; J2405; J3010

== ENCOUNTER → 2019-06-17 | Outpatient (REF) ==
[~2019-06-17] MED LIST changes: -LR 1,000 ML IV ONE; -ceFAZolin SOD 1 GM in D5W MINI-BAG PLUS 50 ML IV ONE
== END ==
LOC: M LAB 12:45